=== PATIENT | female | born 1990 | race Caucasian/White ===

== ENCOUNTER 2017-06-12 14:34 | Emergency (ER) | payer MEDICAID, OTHER ==
[2017-06-12] MEDS ORDERED: Famotidine TAB* 20 MG PO ONE (14:48)
[2017-06-12] MEDS ORDERED: Al Hydrox/Mg Hydrox/Simet LIQ* 30 ML UDC PO ONE (14:48)
[2017-06-12] MEDS ORDERED: Lidocaine 2% VISCOUS* 15 ML UDC PO ONE (14:48)
[2017-06-12] MEDS ORDERED: Famotidine IV* 10 MG/ML 2 ML (20 mg) IV SLOW PU ONE (16:17)
[2017-06-12 16:58] LABS: EGFR Non-African American 155.1 (>60)
[2017-06-12 17:34] LABS: ABS Basophils 0 10^3/ul (0-0.2); ABS Eosinophils 0 10^3/ul (0-0.6); ABS Lymphocytes 0.5 10^3/ul (1.0-4.8); ABS Monocytes 0.3 10^3/ul (0-0.8); ABS Neutrophils 7.8 10^3/ul (1.5-7.7); ABS Nucleated RBC 0 10^3/ul; Eosinophil % 0 % (0-6); Hematocrit 39 % (35-47); Hemoglobin 13.4 g/dl (12.0-16.0); Lymphocyte % 6.3 % (25-47); Mean Corpuscular HGB Conc 34 g/dl (31-36); Mean Corpuscular Hemoglobin 30 pg (27-31); Mean Corpuscular Volume 88 fL (80-97); Mean Platelet Volume 8.6 um3 (7.4-10.4); Nucleated Red Blood Cells % 0; Platelet Count 296 10^3/ul (150-450); Red Blood Count 4.47 10^6/ul (4.0-5.4); Red Cell Distribution Width 12 % (10.5-15); White Blood Count 8.7 10^3/ul (3.5-10.8)
[2017-06-12] MEDS ORDERED: HYDROmorphone INJ* 2 MG/ML CARPUJECT SYRINGE IV SLOW PU ONE (17:35)
--- NOTE | 2017-06-12 19:22 | ED ---
Wing Beckham Angela, scribed for Alvarez Weinberg MD on 06/12/17 at 1618 . - HPI Summary HPI Summary: This pt is a 26 y/o female, currently 9 weeks , presenting to [facility] c/p epigastric pain for the past couple of days. She additionally notes nausea and vomiting. Pt reports she was seen in [place] ER yesterday for the same symptoms and was diagnosed with hyperemesis. She states she was given fluids, zofran, and morphine, and had an US done. Denies vaginal bleeding, spotting, hematemesis , rash, leaking fluid, fever. Pt reports she has been dealing with constipation for 3 weeks now. The last time she was able to keep anything down was approx 6 days ago. Pt was prescribed Zantac and Mylanta, with no relief. Denies any caffeine use. LMP: April 11. PMHx: meningitis x2 as a kid. - History of Current Complaint Chief Complaint: EDAbdPain Stated Complaint: ABD PAIN, N/V 9 WEEKS PRG Time Seen by Provider: 06/12/17 16:09 Hx Obtained From: Patient Chief Complaint: Pain Onset/Duration: Started Days Ago, Still Present Timing: Lasting Days Current Severity: Severe Pain Intensity: 8 Location of Pain: Other: - epigastric Aggravating Factors: Nothing Alleviating Factors: Nothing Associated Signs and Symptoms: Positive: Nausea, Vomiting. Negative: Fever, Vaginal Bleeding or Discharge - Allergies/Home Medications Allergies/Adverse Reactions: Allergies Allergy/AdvReac Type Severity Reaction Status Date / Time No Known Allergies Allergy Verified 06/12/17 14:43 Home Medications: Home Medications Metoclopramide TAB* [Reglan TAB*] 10 mg PO Q6H PRN 06/12/17 [History Confirmed 06/12/17] Ondansetron TAB* [Zofran 4 MG Tab*] 4 mg PO Q6H PRN 06/12/17 [History Confirmed 06/12/17] Ranitidine TAB (NF) [Zantac TAB (NF)] 150 mg PO BID 06/12/17 [History Confirmed 06/12/17] PMH/Surg Hx/FS Hx/Imm Hx Endocrine/Hematology History: Denies: Hx Diabetes Cardiovascular History: Denies: Hx Hypertension Neurological History: Reports: Other Neuro Impairments/Disorders - meningitis x2 as a child Infectious Disease History: No Infectious Disease History: Denies: Traveled Outside the [place] in Last 30 Days - Family History Known Family History: Negative: Cardiac Disease, Hypertension - Social History Alcohol Use: None Substance Use Type: Reports: None Smoking Status (MU): Never Smoked Tobacco Review of Systems Negative: Fever, Chills Positive: Abdominal Pain, Vomiting, Nausea Negative: other - vaginal bleeding Negative: Rash All Other Systems Reviewed And Are Negative: Yes Physical Exam - Summary Physical Exam Summary: Appearance: Well appearing, no pain distress Skin: warm, dry, reflects adequate perfusion Head/face: normal Eyes: EOMI, [place] ENT: normal, moist mucous membranes Neck: supple, non-tender Respiratory: CTA, breath sounds present Cardiovascular: RRR, pulses symmetrical Abdomen: moderate tenderness in the epigastrium, soft Bowel: present Musculoskeletal: normal, strength/ROM intact Neuro: normal, sensory motor intact, A&Ox3 - Physical Exam Triage Information Reviewed: Yes Vital Signs On Initial Exam: Initial Vitals Temp Pulse Resp BP Pulse Ox 97.8 F 78 15 117/71 100 06/12/17 14:39 06/12/17 14:39 06/12/17 14:39 06/12/17 14:39 06/12/17 14:39 Vital Signs Reviewed: Yes Diagnostics - Vital Signs Vital Signs Temp Pulse Resp BP Pulse Ox 06/12/17 14:39 97.8 F 78 15 117/71 100 - Laboratory Lab Results: Lab Results 06/12/17 06/12/17 Range/Units 16:30 17:23 WBC 8.7 (3.5-10.8) 10^3/ul RBC 4.47 (4.0-5.4) 10^6/ul Hgb 13.4 (12.0-16.0) g/dl Hct 39 (35-47) % MCV 88 (80-97) fL MCH 30 (27-31) pg MCHC 34 (31-36) g/dl RDW 12 (10.5-15) % Plt Count 296 (150-450) 10^3/ul MPV 8.6 (7.4-10.4) um3 Neut % (Auto) 89.9 H (38-83) % Lymph % (Auto) 6.3 L (25-47) % [place] % (Auto) 3.6 (0-7) % Eos % (Auto) 0 (0-6) % Baso % (Auto) 0.2 (0-2) % Absolute Neuts (auto) 7.8 H (1.5-7.7) 10^3/ul Absolute Lymphs (auto) 0.5 L (1.0-4.8) 10^3/ul Absolute Monos (auto) 0.3 (0-0.8) 10^3/ul Absolute Eos (auto) 0 (0-0.6) 10^3/ul Absolute Basos (auto) 0 (0-0.2) 10^3/ul Absolute Nucleated RBC 0 10^3/ul Nucleated RBC % 0 Sodium 133 L (139-145) mmol/L Potassium 3.6 (3.5-5.0) mmol/L Chloride 102 (101-111) mmol/L Carbon Dioxide 17 L (22-32) mmol/L Anion Gap 14 H (2-11) mmol/L BUN 4 L (6-24) mg/dL Creatinine 0.48 L (0.51-0.95) mg/dL Est GFR ( Amer) 199.5 (>60) Est GFR (Non-Af Amer) 155.1 (>60) BUN/Creatinine Ratio 8.3 (8-20) Glucose 86 (70-100) mg/dL Calcium 9.2 (8.6-10.3) mg/dL Total Bilirubin 1.50 H (0.2-1.0) mg/dL AST 85 H (13-39) U/L ALT 191 H (7-52) U/L Alkaline Phosphatase 66 (34-104) U/L Total Protein 7.2 (6.4-8.9) g/dL Albumin 4.0 (3.2-5.2) g/dL Globulin 3.2 (2-4) g/dL Albumin/Globulin Ratio 1.3 (1-3) Lipase 56 (11.0-82.0) U/L Result Diagrams: 06/12/17 17:23 06/12/17 16:30 Lab Statement: Any lab studies that have been ordered have been reviewed, and results considered in the medical decision making process. Re-Evaluation - Re-Evaluation Second Eval Re-Evaluation Time: 19:08 Comment: Pt reports her pain is better, rating it 2/10 in severity. First Eval Re-Evaluation Time: 17:35 Change: Unchanged Comment: Pt is still in a lot of pain. Course/Dx - Course Course Of Treatment: Patient had full evaluation 2 days ago at [facility] for similar. She had an ultrasound then after modestly elevated LFTs. They determined that this was not related to gallbladder disease. The patient has had persistent burning epigastric pain after vomiting. This began after eating jalapenos. Today her pain was treated and she was given additional GI medications. She will be given additional PPI, Carafate in addition to her current regimen of antiemetics, Zantac. She will follow up closely with her OB/ [employer]. - Differential Diagnosis/HQI/PQRI: Other: - Pancreatitis, gallbladder disease, gastritis, peptic ulcer disease - Diagnoses Provider Diagnoses: Gastritis, and not yet delivered in first trimester Discharge - Sign-Out/Discharge Documenting (check all that apply): Discharge/Admit/Transfer - Discharge to home - Discharge Plan Condition: Good Disposition: HOME Prescriptions: HYDROcodone/ACETAMIN 5-325 MG* [[place] 5-325 TAB*] 1 tab PO Q8H PRN #6 tab MDD 3 PRN Reason: for severe pain only Omeprazole CAP* [Prilosec CAP* 20 MG] 20 mg PO BEDTIME #30 cap. Sucralfate TAB* [Carafate*] 1 gm PO QID #60 tab Patient Education Materials: Gastritis (ED) Referrals: No Primary Care Phys,NOPCP [Primary Care Provider] - Additional Instructions: Follow-up with Your [facility] in [facility] tomorrow. Avoid spicy foods, caffeine and alcohol. Return for increased pain, vomiting blood, worse or other concerns as discussed. Take a stool softener. - Billing Disposition and Condition Condition: GOOD Disposition: HOME The documentation as recorded by the Wing schulte Angela accurately reflects the service I personally performed and the decisions made by me, Alvarez Weinberg MD.
[2017-06-12 20:33] VITALS: BP 113/70
== END 2017-06-12 19:40 | disposition home or self-care (01) ==
LOC: ED 14:34
DX: O26.891 Other specified pregnancy related conditions, first trimester (principal); K29.70 Gastritis, unspecified, without bleeding; Z3A.09 9 weeks gestation of pregnancy; Z86.61 Personal history of infections of the central nervous system
CPT/HCPCS: 36415; 80053; 83690; 85025; 96374; 96375; 96376; 99283; A9270-GY; J1170